=== PATIENT | female | born 1995 ===

== ENCOUNTER 2019-06-10 15:15 | Inpatient (IN) | payer OTHER ==
[~2019-06-10] VITALS: Ht 172.7 cm; Wt 79.4 kg
== END 2019-06-16 10:44 | disposition home or self-care (01) | DRG 807 ==
LOC: LDR 06-14 05:28 → OB/GYN 06-14 05:28
PROVIDERS: ADMIT Obstetrics & Gynecology
PROC: 10E0XZZ Delivery of Products of Conception, External Approach (ICD-10-PCS; principal; 2019-06-14)
PROC: 0UQGXZZ Repair Vagina, External Approach (ICD-10-PCS; 2019-06-14)
PROC: 3E0P7VZ Introduction of Hormone into Female Reproductive, Via Natural or Artificial Opening (ICD-10-PCS; 2019-06-14)
PROC: 3E033VJ Introduction of Other Hormone into Peripheral Vein, Percutaneous Approach (ICD-10-PCS; 2019-06-14)
PROC: 10907ZC Drainage of Amniotic Fluid, Therapeutic from Products of Conception, Via Natural or Artificial Opening (ICD-10-PCS; 2019-06-14)
PROC: 4A1HXCZ Monitoring of Products of Conception, Cardiac Rate, External Approach (ICD-10-PCS; 2019-06-14)
DX: O71.4 Obstetric high vaginal laceration alone (principal); Z37.0 Single live birth; Z3A.40 40 weeks gestation of pregnancy